=== PATIENT | female | born 1970 | race Hispanic/Latino ===

== ENCOUNTER 2017-01-24 13:55 | Emergency (ER) | payer OTHER, MEDICARE ==
[~2017-01-24 13:55] MED LIST: ATORVASTATIN CA80 MG PO; BABY ASPIRIN CH81 MG PO; COTOLONE5 MG PO; FISH OIL CONCEN1 SGL PO; FOLIC ACID1 M1 PO; GABAPENTIN100 M2 PO; LIDODERM 5% PAT1 PAT TOP; LOPRESSOR 12.12.5 MG PO; MARINOL2.5 MG PO; MOTRIN 600 MG600 MG PO; OXYCOD/APAP TAB 10- PO; OXYCODONE HCL5 M2 PO; PREDNISONE 20MG20 MG PO; PREMARIN V0.625 MG/G VAG; PROAIR HFA8.5 GM INH; SUMATRIPTAN SU100 MG PO; VITAMIN D-32000 UNI1 PO; VOLTAREN GEL1% TOP; ZANAFLEX2 M2 PO
[2017-01-24] MEDS ORDERED: BREO ELLIPTA 11 EACH PO (14:28)
[2017-01-24] MEDS ORDERED: PREDNISONE20 M1 PO (14:33)
--- NOTE | 2017-01-24 15:30 | ED GI/GU/ABDOMINAL COMPLAINT ---
History of Present Illness General Chief Complaint: Chest Pain Stated Complaint: WEAKNESS/CP/NAUSEA Source: patient, old records Exam Limitations: no limitations Vital Signs & Intake/Output Vital Signs & Intake/Output Vital Signs Date Time Temp Pulse Resp B/P Pulse O2 O2 Flow FiO2 Ox Delivery Rate 01/24 1707 97.2 72 18 128/82 98 01/24 1416 98 Room Air Room Air 01/24 1414 97.8 76 20 127/97 98 Room Air Room Air Allergies Coded Allergies: ketorolac (Severe, RASH, HIVES 01/24/17) sulfamethoxazole (From JULRA) (Severe, ANAPHYLAXIS 01/24/17) trimethoprim (From ) (Severe, ANAPHYLAXIS 01/24/17) egg (Intermediate, DIARRHEA FROM EGG WHITE 01/24/17) gluten (Intermediate, GI S/S AND RASH 01/24/17) Iodinated Contrast Media - Oral and (TRIGGERS ASTHMA 01/24/17) Milk Containing Products (PER PT BLOOD WORK 01/24/17) Penicillins (RED SWELLING 01/24/17) cat dander (SNEEZING, TRIGGERS ASTHMA 01/24/17) morphine (RASH, HIVES 01/24/17) shellfish derived (ASTHMA 01/24/17) Uncoded Allergies: DUST (TRIGGERS ASTHMA 07/07/15) Reconcile Medications Albuterol Sulfate (Proair Hfa) 90 MCG HFA.AER.AD 2 PUF INH Q4-6 PRN PRN ASTHMA (Reported) Cholecalciferol (Vitamin D3) (Vitamin D-3) 2,000 UNIT CAPSULE 1 CAP PO DAILY SUPPLEMENT (Reported) Dronabinol (Marinol) 2.5 MG CAPSULE 1-2 CAP PO BID PRN PAIN (Reported) Fluticasone/Vilanterol (Breo Ellipta 100-25 Mcg INH) 100 MCG-25 MCG/DOSE BLST.W.DEV 1 PUFF PO DAILY BREATHING PROBLEMS (Reported) Folic Acid 1 MG TABLET 1 TAB PO DAILY SUPPLEMENT (Reported) Gabapentin 100 MG CAPSULE 1 CAP PO TID PRN PAIN (Reported) Oxycodone HCl 5 MG CAPSULE 1 CAP PO 4XDP PRN PAIN (Reported) Prednisone 20 MG TABLET 1 TAB PO DAILY ARTHRITIS (Reported) Tizanidine HCl (Zanaflex) 2 MG CAPSULE 0.5 CAP PO BID PRN HEADACHE (Reported) Triage Note: PT PRESENTS TO ER C/O OF CHEST PAIN X2 WEEKS. PT STATES SHE WAS CURRENTLY BEING TREATED FOR PLEURISY AND COMPLETED HER ABX 5 DAYS AGO. PT STATES THE CHEST PAIN HAS BEEN GOING ON SINCE THE DX. PT ALSO REPORTS THAT SHE HAS ABDOMINAL PAIN TODAY AND RECTAL BLEEDING. PT STATES SHE CALLED HER DOCTOR WHO TOLD HER TO COME TO OFFICE BUT SHE DIDN'T FEEL COMFORTABLE DRIVING THERE. Triage Nurses Notes Reviewed? yes ? N Is pt currently ? No Onset: Abrupt Duration: day(s): (1) Timing: multiple episodes today Quality/Severity: moderate, sharpness Location: epigastric, BACK Radiation: no radiation Activities at Onset: ON PREDNISONE/TORADOL FOR PLEURISSY Prior Abdominal Problems: recent trauma No Modifying Factors: none Associated Symptoms: PAIN WITH DEEP INSPIRATION, LACK OF APPETITIE, 2 EPIDOES OF BRBPR HPI: 46 year old female with history of lupus, RA, asd presents to the ER with abdominal bloating, nausea, 2 episodes of bright red blood per rectum today. Patient reported normal color BM this morning. She is on day 3 of prednisone 10 mg bid for bronchitis by her PCP. She was also given a shot of toradol 3 days ago in her pcp's office which she thinks may be contributing to her symptoms. Prior to this she was complaining of cough with back pain on inspiration. Past History Travel History Traveled to [place] past 21 day No Medical History Any Pertinent Medical History? see below for history Neurological: migraine, peripheral neuropathy EENT: RUPTURED EARDRUM Cardiovascular: HEART MURMUR CARDIAC CATHETERIZATIONS ATRIAL SEPTAL DEFECT Respiratory: bronchitis, PLEURISY Gastrointestinal: hiatal hernia, irritable bowel syndrome, lactose intolerance, ADHESIONS IN SMALL INTEST ECOLI CDIFF Hepatic: NONE Renal: NONE Musculoskeletal: rheumatoid arthritis, LUPUS MULT CONNECT TISS D/O Psychiatric: anxiety, chronic pain disorder, insomnia Endocrine: OSTOPENIA Blood Disorders: NONE Cancer(s): NONE [employer]/Reproductive: fibroid, miscarriage History of MRSA: No History of VRE: No History of CDIFF: No Tetanus Vaccine: 04/03/12 Surgical History Surgical History: , hysterectomy, RUPTURED EAR DRUMS SM INTEST ADHESIONS MULT LIGAMENT/TENDON REP. ADNOIDS Psychosocial History Who do you live with Patient/Self Services at Home None What is your primary language Persian Tobacco Use: Never used Daily Tobacco Use Amount/Type: =< 4 Cigarettes daily ETOH Use: denies use Family History Hx Contributory? No Review of Systems Review of Systems Constitutional: Denies: chills, fever. EENTM: Reports: no symptoms. Respiratory: Reports: short of breath. Denies: cough. Cardiovascular: Reports: chest pain. GI: Reports: abdominal pain, nausea. Denies: constipation, diarrhea, vomiting. Genitourinary: Reports: no symptoms. Musculoskeletal: Reports: back pain. Skin: Reports: no symptoms. Neurological/Psychological: Reports: anxiety. Hematologic/Endocrine: Reports: bleeding. Denies: bruising. Immunologic/Allergic: Denies: splenectomy. All Other Systems: Reviewed and Negative Physical Exam Physical Exam General Appearance: well developed/nourished, alert, awake Head: atraumatic, normal appearance Eyes: Bilateral: normal appearance, PERRL, EOMI. Ears, Nose, Throat, Mouth: hearing grossly normal, moist mucous membrane Neck: normal inspection, supple, full range of motion Respiratory: normal breath sounds, chest non-tender, no respiratory distress Cardiovascular: regular rate/rhythm Peripheral Pulses: 2+ radial (R), 2+ radial (L) Gastrointestinal: normal bowel sounds, soft, tenderness (EPIGASTRIC), NO REBOUND OR GUARDING Back: normal inspection, normal range of motion Extremities: normal range of motion Neurologic/Psych: no motor/sensory deficits, awake, alert, oriented x 3 Skin: intact, normal color, warm/dry Core Measures ACS in differential dx? Yes ASA ordered for poss ACS? No-ACS ruled out Severe Sepsis Present: No Septic Shock Present: No Progress Differential Diagnosis: gastritis, hepatitis, peptic ulcer, PUD/GERD, perforated viscous, HEMORRHOIDS, COLITIS, PNA, PTX, PLEURISSY Plan of Care: Orders Procedure Date/time Status LIPASE 01/24 1544 Complete MISTAKE 01/24 1531 Active TROPONIN LEVEL 01/24 1529 Complete PARTIAL THROMBOPLASTIN TIME 01/24 1529 Complete PROTHROMBIN TIME 01/24 1529 Complete LACTIC ACID 01/24 1529 Complete HUMAN BETA HCG SCREEN 01/24 1529 Complete COMPREHENSIVE METABOLIC PANEL 01/24 1529 Complete CBC WITHOUT DIFFERENTIAL 01/24 1529 Complete TYPE & SCREEN (NOT X-MATCH) 01/24 1529 Complete EKG 01/24 1357 Active Laboratory Tests 01/24/17 1544: Anion Gap 15, Estimated GFR > 60, BUN/Creatinine Ratio 17.1, Glucose 95, Lactic Acid 1.5, Calcium 10.8 H, Total Bilirubin 0.8, AST 26, ALT 30, Alkaline Phosphatase 76, Troponin I < 0.01, Total Protein 8.1, Albumin 4.9, Globulin 3.2, Albumin/Globulin Ratio 1.5, Lipase 123, Total Beta HCG NEGATIVE, PT 10.7, INR 1.02, APTT 35, CBC w Diff NO MAN DIFF REQ, RBC 4.96, MCV 91.9, MCH 30.9, RDW 13.8, MPV 8.0, Gran % 58.2, Lymphocytes % 35.8, Monocytes % 5.5, Eosinophils % 0.2, Basophils % 0.3, Absolute Granulocytes 4.8, Absolute Lymphocytes 2.9, Absolute Monocytes 0.5, Absolute Eosinophils 0, Absolute Basophils 0, PUBS MCHC 33.7 01/24/17 1536: Lipase Cancelled HEMODYNAMICALLY STABLE, LABS WNL. FEELS MUCH IMPROVED ATER ODT ZOFRAN AND ATIVAN WHICH WAS GIVEN FOR SEVERE ANXIETY. CXR NORMAL. RESULTS DISCUSSED WITH PATIENT AT LENGTH. SHE WILL FOLLOW UP WITH HER PCP IN THE OFFICE. (SHAHID BEYER,SAMANTHA) Initial ED EKG: NSR Departure Departure Time of Disposition: 1737 Disposition: HOME OR SELF CARE Condition: Stable Clinical Impression Primary Impression: Rectal bleeding Secondary Impressions: Hypercalcemia, Pleurisy Referrals: CIERRA WEEKS DO,RUBIA ORTEGA MD,NICOLE (PCP/Family) Additional Instructions: CONTINUE YOUR REGULAR MEDICATIONS. FOLLOW UP WITH YOUR DOCTOR IN THE OFFICE WELL as the colorectal surgeon listed. Return to the ER for any changing or worsening symptoms. Departure Forms: Customer Survey General Discharge Information
[2017-01-24 16:05] LABS: PT 10.7 SEC (9.4-12.5); PTT 35 SEC (25-37)
[2017-01-24 16:25] LABS: ABSOLUTE BASOPHIL COUNT 0 /CUMM (0.0-0.2); ABSOLUTE EOSINOPHIL COUNT 0 /CUMM (0.0-0.7); ABSOLUTE GRANULOCYTE CT 4.8 /CUMM (1.4-6.5); ABSOLUTE LYMPH COUNT 2.9 /CUMM (1.2-3.4); ABSOLUTE MONOCYTE COUNT 0.5 /CUMM (0.10-0.60); BASOPHIL % 0.3 % (0.0-2.0); EOSINOPHIL % 0.2 % (0-5); GRANULOCYTE % 58.2 % (42.2-75.2); HEMATOCRIT 45.6 % (37-47); MEAN CORPUSCULAR HGB 30.9 PG (27.0-31.0); MEAN CORPUSCULAR HGB CONC 33.7 G/DL (33.0-37.0); MEAN CORPUSCULAR VOLUME 91.9 FL (81.0-99.0); PLATELET COUNT 285 /CUMM (130-400); RBC DISTRIBUTION WIDTH 13.8 % (11.5-14.5); RED BLOOD CELL CT 4.96 /CUMM (4.20-5.40); WHITE BLOOD CELL COUNT 8.2 /CUMM (4.8-10.8)
--- NOTE | 2017-01-24 16:52 | RADIOLOGY REPORT ---
EXAMINATION: XR CHEST CLINICAL INFORMATION: Chest pain pneumonia shortness of breath COMPARISON: Prior chest December 2015 TECHNIQUE: 2 views of the chest were obtained. FINDINGS: No significant abnormality is noted involving the heart, lungs, mediastinum, bony thorax or soft tissues. IMPRESSION: Unremarkable examination.
[2017-01-24 17:07] VITALS: BP 128/82
== END 2017-01-24 18:03 ==
LOC: ERH 13:55
PROVIDERS: Emergency Medicine
DX: R09.1 Pleurisy (principal); R07.9 Chest pain, unspecified; E83.52 Hypercalcemia; K62.5 Hemorrhage of anus and rectum
CPT/HCPCS: 36415; 93005; 93010; 96374; 96375; J3101